=== PATIENT | male | born 2000 | race African-American/Black ===

== ENCOUNTER 2024-11-26 19:11 | Emergency (ER) | payer OTHER, SELFPAY ==
--- NOTE | 2024-11-26 19:27 | DI.RAD.S_ITS ---
PROCEDURE: XR CHEST 1V INDICATIONS: chest pain TECHNIQUE: One view of the chest was acquired. COMPARISON: None. FINDINGS: Surgical changes and devices: None. Lungs and pleura: Lungs are clear. No pleural effusions or pneumothorax. Mediastinum: Mediastinal contours appear normal. Heart size is normal. Bones and chest wall: No suspicious bony lesions. Overlying soft tissues appear unremarkable. IMPRESSION: No acute cardiothoracic process. Dictated by: Rafa Stephen M.D. on 11/26/2024 at 20:32 Approved by: Rafa Stephen M.D. on 11/26/2024 at 20:33
[2024-11-26 19:36] VITALS: BP 132/87; PULSE 99; RESP 24; TEMP 36.1; O2SAT 97; BMI 45.1
--- NOTE | 2024-11-26 19:47 | EKG_ITS ---
[facility] [id number] [place] [id number] Test Date: 2024-11-26 Pat Name: Ashley Spencer [facility] Room: Gender: Male Behavioral Health Counselor: SHANNAN : 2000 Requested By: Order Number: [id number] [place] MD: Aamir Martinez Measurements Intervals [place] Rate: 115 P: 51 AL: 138 QRS: 66 QRSD: 84 T: 6 QT: 342 QTc: 473 Interpretive Statements Sinus tachycardia T wave abnormality, consider anterolateral ischemia Electronically Signed On 11-28-2024 8:44:36 PDT by Aamir Martinez
[2024-11-26 20:41] LABS: Add Manual Diff / Slide Review NO; Basophils Absolute Auto 100 /uL (0-100); Eosinophils Absolute Auto 300 /uL (0-450); Eosinophils Percent Auto 2.5 % (2-4); Hematocrit 47.1 % (41-53); Hemoglobin 15.6 g/dL (13.5-17.5); Lymphocytes Absolute Auto 3000 /uL (1100-4500); Lymphocytes Percent Auto 29.4 % (25-40); Mean Corpuscular HGB Conc 33.1 % (30-36); Mean Corpuscular Hemoglobin 27.7 PG (26-34); Mean Corpuscular Volume 83.6 fL (80-100); Monocytes Absolute Auto 1000 /uL (0-900); Monocytes Percent Auto 9.9 % (3-14); Neutrophils Absolute Auto 5900 /uL (1500-7000); Neutrophils Percent Auto 57.2 % (50-75); Platelet Count 298 X10^3/uL (150-400); Red Blood Cell Count 5.64 X10^6/uL (4.5-5.9); Red Cell Distribution Width 14.7 % (11.6-14.8); White Blood Cell Count 10.3 X10^3/uL (4.5-11.0)
[2024-11-26 20:53] LABS: INR 1.2 (0.9-1.3); Prothrombin Time 14.1 SECONDS (9.4-12.5)
[2024-11-26 20:56] LABS: PTT Partial Thromboplastin Tim 40 SECONDS (25.1-36.5)
[2024-11-26 20:57] LABS: Alanine Aminotransferase 52 IU/L (<50); Albumin 4.4 g/dL (3.5-5.0); Albumin Globulin Ratio 1.3 (1.0-2.8); Alkaline Phosphatase 77 U/L (38-126); Aspartate Aminotransferase 39 IU/L (17-59); BUN Creatinine Ratio 8.1 (6-22); Bilirubin Total 0.8 mg/dL (0.2-1.3); Blood Urea Nitrogen 9 mg/dL (9-20); Calcium 8.9 mg/dL (8.4-10.2); Carbon Dioxide 21 mmol/L (22-32); Chloride 105 mmol/L (98-107); Creatine Kinase 305 U/L (55-170); Estimated Glomerular Filt Rate > 60 mL/min (>60); Globulin 3.5 g/dL (1.7-4.1); Glucose 99 mg/dL (70-100); HEMOLYSIS < 15 (0-50); Lipase 69 U/L (23-300); Magnesium 2.2 mg/dL (1.6-2.3); Potassium 3.5 mmol/L (3.4-5.1); Sodium 139 mmol/L (137-145); Total Protein 7.9 g/dL (6.3-8.2)
[2024-11-26 21:09] LABS: NT-proBNP (BNP-Adult 18+) 3310 pg/mL (<125); Troponin I < 0.012 ng/mL (0.01-0.034)
[2024-11-27] VITALS (19 sets, daily range): BP systolic 109–162; BP diastolic 55–119; PULSE 117–129; RESP 20–36; TEMP 36.6–37.2; O2SAT 90–97
--- NOTE | 2024-11-27 03:47 | ED_ITS ---
HPI - General Adult <Frank Leyva MD - Last Filed: 11/27/24 16:36> General Chief complaint: Shortness of Breath/Dyspnea Stated complaint: SOB, Tachycardia, lightheaded Time Seen by Provider: 11/26/24 20:01 Source: patient and family Mode of arrival: Ambulatory History of Present Illness HPI narrative: 24-year-old male has had a cough for 2 days, increasing shortness of breath, while in the waiting room felt dizzy, had incontinence of urine, shaking episode, collapse to the floor, hit the back of his head, found to have low blood sugar, dextrose given, moved to exam room. Seems to be recovered, moving extremities. Still has some shortness of breath. Persisting tachycardia. Denies chest pain. Denies cough and fevers. Denies pain to abdomen and pelvis. Denies extremity pain or swelling. Denies neck pain. No prior blood clots to legs or lungs. No leg pain or swelling symptoms. Related Data Allergies Allergy/AdvReac Type Severity Reaction Status Date / Time No Known Drug Allergies Allergy Verified 11/26/24 19:36 Patient History <Frank Leyva MD - Last Filed: 11/27/24 16:36> Social History Smoking Status: Former smoker Smoking Status: Former smoker Exam <Frank Leyva MD - Last Filed: 11/27/24 16:36> Narrative Exam Narrative: GENERAL: Well-developed patient, in mild distress. HEAD: Atraumatic. Normocephalic. EYES: Pupils equal round and reactive. Extraocular motions intact. No scleral icterus. No injection or drainage. ENT: Nose without bleeding, purulent drainage. Throat without erythema, tonsillar hypertrophy or exudate. Airway patent. NECK: Trachea midline. Non tender CARDIOVASCULAR: Fast rate regular rhythm, without obvious murmurs, gallops, or rubs. RESPIRATORY: Clear to auscultation. Breath sounds equal bilaterally. No wheezes, rales, or rhonchi. GASTROINTESTINAL: Abdomen soft, non-tender, nondistended. EXTREMITIES: No edema or joint tenderness. BACK: Nontender without deformity or crepitance. No flank tenderness. NEURO: AOx3. Motor functions grossly nonfocal SKIN: No rash or erythema of visible areas Initial Vital Signs Initial Vital Signs: Vital Signs Temperature 97.0 F L 11/26/24 19:36 Pulse Rate 99 H 11/26/24 19:36 Respiratory Rate 24 11/26/24 19:36 Blood Pressure 132/87 11/26/24 19:36 Pulse Oximetry 97 11/26/24 19:36 Oxygen Delivery Method Room Air 11/26/24 19:36 <Zara Graf DO - Last Filed: 11/27/24 16:14> Initial Vital Signs Initial Vital Signs: Vital Signs Temperature 97.0 F L 11/26/24 19:36 Pulse Rate 99 H 11/26/24 19:36 Respiratory Rate 24 11/26/24 19:36 Blood Pressure 132/87 11/26/24 19:36 Pulse Oximetry 97 11/26/24 19:36 Oxygen Delivery Method Room Air 11/26/24 19:36 Course <Frank Leyva MD - Last Filed: 11/27/24 16:36> Orders Ordered: ED Orders 11/27/24 07:45 Trop I [Troponin I] Stat 11/27/24 08:56 Miscellaneous to [facility] Routine Discontinued Medications Aspirin (Aspirin 81 Mg Chew Tab) 324 mg PO NOW ONE Stop: 11/26/24 19:28 Last Admin: 11/27/24 05:22 Dose: Not Given Documented By: Dextrose (Dextrose 50 % In Water 25 Gm/50 Ml Syringe) 12.5 gm IV PRN PRN PRN Reason: Hypoglycemia Last Admin: 11/27/24 04:07 Dose: 12.5 gm Documented By: VINICIUS Heparin Sodium (Porcine) (Heparin 5,000 Unit/Ml Vial) 10,000 unit 80 unit/kg (88047 unit) IV NOW ONE Stop: 11/27/24 05:58 Last Admin: 11/27/24 07:58 Dose: 10,000 unit Documented By: JUNIE Heparin Sodium/Dextrose (Heparin Drip) 25,000 unit in 500 mls @ 45.722 mls/hr IV CONT TINA; Protocol Last Admin: 11/27/24 06:07 Dose: Not Given Documented By: Heparin Sodium/Dextrose (Heparin Drip) 25,000 unit in 500 mls @ 40 mls/hr IV CONT TINA; Protocol Last Titration: 11/27/24 10:06 Dose: 2,000 unit/hr, 40 mls/hr Documented By: JUNIE Co-signed By: LOULOU Admin: 11/27/24 08:02 Dose: 2,000 unit/hr, 40 mls/hr Documented By: JUNIE Co-signed By: YARELI Ceftriaxone Sodium 1,000 mg/ (Sodium Chloride) 100 mls @ 200 mls/hr IV NOW ONE Stop: 11/27/24 06:29 Last Infusion: 11/27/24 09:10 Dose: Infused Documented By: Admin: 11/27/24 08:40 Dose: 200 mls/hr Documented By: JUNIE Doxycycline Hyclate 100 mg/ (Sodium Chloride) 100 mls @ 100 mls/hr IV NOW ONE Stop: 11/27/24 06:29 Last Infusion: 11/27/24 10:05 Dose: 100 mls/hr Documented By: Admin: 11/27/24 09:11 Dose: 100 mls/hr Documented By: JUNIE Vital Signs Vital signs: Vital Signs - 8 hr 11/27/24 09:00 11/27/24 09:01 11/27/24 09:01 Temperature Pulse Rate 119 H 119 H Respiratory Rate 24 27 H Blood Pressure 115/66 Pulse Oximetry 96 96 Oxygen Delivery Method Nasal Cannula Oxygen Flow Rate 2 11/27/24 09:30 11/27/24 09:30 11/27/24 09:43 Temperature 99.0 F Pulse Rate 120 H Respiratory Rate 25 H Blood Pressure 111/71 Pulse Oximetry 97 Oxygen Delivery Method Nasal Cannula Oxygen Flow Rate 2 <Zara Graf, DO - Last Filed: 11/27/24 16:14> Orders Ordered: ED Orders 11/27/24 07:45 Trop I [Troponin I] Stat 11/27/24 08:56 Miscellaneous to [facility] Routine Discontinued Medications Aspirin (Aspirin 81 Mg Chew Tab) 324 mg PO NOW ONE Stop: 11/26/24 19:28 Last Admin: 11/27/24 05:22 Dose: Not Given Documented By: Dextrose (Dextrose 50 % In Water 25 Gm/50 Ml Syringe) 12.5 gm IV PRN PRN PRN Reason: Hypoglycemia Last Admin: 11/27/24 04:07 Dose: 12.5 gm Documented By: VINICIUS Heparin Sodium (Porcine) (Heparin 5,000 Unit/Ml Vial) 10,000 unit 80 unit/kg (32719 unit) IV NOW ONE Stop: 11/27/24 05:58 Last Admin: 11/27/24 07:58 Dose: 10,000 unit Documented By: JUNIE Heparin Sodium/Dextrose (Heparin Drip) 25,000 unit in 500 mls @ 45.722 mls/hr IV CONT TINA; Protocol Last Admin: 11/27/24 06:07 Dose: Not Given Documented By: AB Heparin Sodium/Dextrose (Heparin Drip) 25,000 unit in 500 mls @ 40 mls/hr IV CONT TINA; Protocol Last Titration: 11/27/24 10:06 Dose: 2,000 unit/hr, 40 mls/hr Documented By: SPF Co-signed By: LOULOU Admin: 11/27/24 08:02 Dose: 2,000 unit/hr, 40 mls/hr Documented By: JUNIE Co-signed By: YARELI Ceftriaxone Sodium 1,000 mg/ (Sodium Chloride) 100 mls @ 200 mls/hr IV NOW ONE Stop: 11/27/24 06:29 Last Infusion: 11/27/24 09:10 Dose: Infused Documented By: Admin: 11/27/24 08:40 Dose: 200 mls/hr Documented By: SPF Doxycycline Hyclate 100 mg/ (Sodium Chloride) 100 mls @ 100 mls/hr IV NOW ONE Stop: 11/27/24 06:29 Last Infusion: 11/27/24 10:05 Dose: 100 mls/hr Documented By: Admin: 11/27/24 09:11 Dose: 100 mls/hr Documented By: JUNIE Vital Signs Vital signs: Vital Signs - 8 hr 11/27/24 09:00 11/27/24 09:01 11/27/24 09:01 Temperature Pulse Rate 119 H 119 H Respiratory Rate 24 27 H Blood Pressure 115/66 Pulse Oximetry 96 96 Oxygen Delivery Method Nasal Cannula Oxygen Flow Rate 2 11/27/24 09:30 11/27/24 09:30 11/27/24 09:43 Temperature 99.0 F Pulse Rate 120 H Respiratory Rate 25 H Blood Pressure 111/71 Pulse Oximetry 97 Oxygen Delivery Method Nasal Cannula Oxygen Flow Rate 2 Medical Decision Making <Frank Leyva MD - Last Filed: 11/27/24 16:36> Lab Data Lab results reviewed: Yes I reviewed the patient's lab results. Lab results narrative: White blood cell count 18786, hemoglobin 15.6, platelets 298,000. Glucose 99. Sodium 139 with potassium 3.5, serum CO2 21. BUN 9 with creatinine 1.11 normal renal function. Troponin negative/unmeasurable. Lactate 2.9 elevated. BNP 3310 elevated. COVID influenza RSV negative. 11/26/24 20:30 11/26/24 20:30 Labs: Lab Results 11/26/24 11/27/24 11/27/24 Range/Units 20:30 05:20 05:54 WBC 10.3 (4.5-11.0) X10^3/uL RBC 5.64 (4.5-5.9) X10^6/uL Hgb 15.6 (13.5-17.5) g/dL Hct 47.1 (41-53) % MCV 83.6 (80-100) fL MCH 27.7 (26-34) PG MCHC 33.1 (30-36) % RDW 14.7 (11.6-14.8) % Plt Count 298 (150-400) X10^3/uL Neut % (Auto) 57.2 (50-75) % Lymph % (Auto) 29.4 (25-40) % [place] % (Auto) 9.9 (3-14) % Eos % (Auto) 2.5 (2-4) % Baso % (Auto) 1.0 (0-2) % Neut # (Auto) 5900 (0742-2825) /uL Lymph # (Auto) 3000 (6214-9980) /uL [place] # (Auto) 1000 H (0-900) /uL Eos # (Auto) 300 (0-450) /uL Baso # (Auto) 100 (0-100) /uL PT 14.1 H (9.4-12.5) SECONDS INR 1.2 (0.9-1.3) APTT 40 H (25.1-36.5) SECONDS Sodium 139 (137-145) mmol/L Potassium 3.5 (3.4-5.1) mmol/L Chloride 105 (98-107) mmol/L Carbon Dioxide 21 L (22-32) mmol/L BUN 9 (9-20) mg/dL Creatinine 1.11 (0.66-1.25) mg/dL Estimated GFR > 60 (>60) mL/min BUN/Creatinine Ratio 8.1 (6-22) Glucose 99 (70-100) mg/dL Lactate 2.9 H (0.7-2.1) mmol/L Calcium 8.9 (8.4-10.2) mg/dL Magnesium 2.2 (1.6-2.3) mg/dL Total Bilirubin 0.8 (0.2-1.3) mg/dL AST 39 (17-59) IU/L ALT 52 H (<50) IU/L Alkaline Phosphatase 77 (38-126) U/L Total Creatine Kinase 305 H (55-170) U/L Troponin I < 0.012 (0.01-0.034) ng/mL NT-Pro-B Natriuret Pep 3310 H (<125) pg/mL Total Protein 7.9 (6.3-8.2) g/dL Albumin 4.4 (3.5-5.0) g/dL Globulin 3.5 (1.7-4.1) g/dL Albumin/Globulin Ratio 1.3 (1.0-2.8) Lipase 69 (23-300) U/L SARS-CoV-2 (PCR) Negative (Negative) Influenza A (RT-PCR) Flu a negative (NEGATIVE) Influenza B (RT-PCR) Flu b negative (NEGATIVE) RSV (PCR) Negative (Negative) 11/27/24 11/27/24 Range/Units 06:22 07:45 WBC (4.5-11.0) X10^3/uL RBC (4.5-5.9) X10^6/uL Hgb (13.5-17.5) g/dL Hct (41-53) % MCV (80-100) fL MCH (26-34) PG MCHC (30-36) % RDW (11.6-14.8) % Plt Count (150-400) X10^3/uL Neut % (Auto) (50-75) % Lymph % (Auto) (25-40) % [place] % (Auto) (3-14) % Eos % (Auto) (2-4) % Baso % (Auto) (0-2) % Neut # (Auto) (4772-3409) /uL Lymph # (Auto) (4439-7535) /uL [place] # (Auto) (0-900) /uL Eos # (Auto) (0-450) /uL Baso # (Auto) (0-100) /uL PT (9.4-12.5) SECONDS INR (0.9-1.3) APTT 30 D (25.1-36.5) SECONDS Sodium (137-145) mmol/L Potassium (3.4-5.1) mmol/L Chloride (98-107) mmol/L Carbon Dioxide (22-32) mmol/L BUN (9-20) mg/dL Creatinine (0.66-1.25) mg/dL Estimated GFR (>60) mL/min BUN/Creatinine Ratio (6-22) Glucose (70-100) mg/dL Lactate 2.7 H (0.7-2.1) mmol/L Calcium (8.4-10.2) mg/dL Magnesium (1.6-2.3) mg/dL Total Bilirubin (0.2-1.3) mg/dL AST (17-59) IU/L ALT (<50) IU/L Alkaline Phosphatase (38-126) U/L Total Creatine Kinase (55-170) U/L Troponin I 0.026 (0.01-0.034) ng/mL NT-Pro-B Natriuret Pep (<125) pg/mL Total Protein (6.3-8.2) g/dL Albumin (3.5-5.0) g/dL Globulin (1.7-4.1) g/dL Albumin/Globulin Ratio (1.0-2.8) Lipase (23-300) U/L SARS-CoV-2 (PCR) (Negative) Influenza A (RT-PCR) (NEGATIVE) Influenza B (RT-PCR) (NEGATIVE) RSV (PCR) (Negative) Point of Care Testing Glucose POC 136 Point of care testing: Point of Care Testing Glucose POC 136 Imaging Data Chest x-ray: Radiologist's Impression: [address] [address] XRay Report Signed Patient: Ashley Spencer MR#: [id number] : 2000 Acct:[id number] Age/Sex: 24 / M Date of Service: 11/26/24 Loc: ED Accession Number: [id number] Procedure: XR chest 1V Ordering Provider: Frank Leyva MD PROCEDURE: XR CHEST 1V INDICATIONS: chest pain TECHNIQUE: One view of the chest was acquired. COMPARISON: None. FINDINGS: Surgical changes and devices: None. Lungs and pleura: Lungs are clear. No pleural effusions or pneumothorax. Mediastinum: Mediastinal contours appear normal. Heart size is normal. Bones and chest wall: No suspicious bony lesions. Overlying soft tissues appear unremarkable. IMPRESSION: No acute cardiothoracic process. Dictated by: Rafa Stephen M.D. on 11/26/2024 at 20:32 Approved by: Rafa Stephen M.D. on 11/26/2024 at 20:33 ECG Data Attestation: I personally reviewed and interpreted this ECG as follows: Interpretation: Sinus tachycardia with rate of 115. No obvious ST segment elevation or depression. T-wave inversion lead 3 but upright in leads F and 2. T-wave inversion anterolateral leads. PA 138, QRS 84, QTC 473. MDM Narrative Medical decision making narrative: 24-year-old male had triage complaint of shortness a breath for the last couple of days, no fevers cough or constitutional symptoms, while in the waiting room was noted to have seizure activity, incontinence of urine, fell, struck his head, glucose was found to be 50s, given IV dextrose and oral juice, repeat glucose increased, no further seizure activity, subsequent glucose improved, no neck pain or tenderness after the fall. Persisting tachycardia noted. Labs sent while in waiting room remarkable for BNP 3300. No chart history of CHF or cardiomyopathy. EKG with sinus tachycardia. CT head noncontrast study ordered. CT angiogram chest ordered. CT head noncontrast. Impressions: ?No acute intracranial findings.? See teleradiology report. CT angio chest. Impressions: ?Large volume bilateral pulmonary emboli including a saddle embolus. Many of the emboli appear occlusive and there are findings of increased right heart pressure. Consolidation within the right medial lower lobe could be infection or infarct. Lungs are otherwise clear.? See teleradiology report. IV heparin per PE protocol bolus then infusion. Will need transfer for higher level of care for thrombectomy-capable facility. We will send hypercoagulable panel since this VTE seems to be unprovoked. Patient expressed understanding for this recommendation. Case discussed with hatchery laborer, there is send out hypercoagulable workup panel via [facility], verbal request for send out ordered. technical support representative came to draw additional blood for testing. Lung consolidation mentioned, infarct vs infection, lactate elevated, we will cover with antibiotics. Blood cultures, IV ceftriaxone, IV doxycycline. 0700, we will need transfer for thrombectomy for saddle PE with cor pulmonale, not available at this facility. Signed out to [facility] ED shift physician Dr. Graf. 30DrKarley Graf Patient seen evaluated by myself signed out by Dr. Leyva. Patient has been having increasing shortness of breath with exertion for the last couple of days. [place] he needed to sit down frequently. While in the waiting room he had seizure activity found to be hypoglycemic. Glucose now Patient awake alert oriented. He remains tachycardic requiring 2-3 L of oxygen blood pressure remains stable. He has a negative troponin 0.012-->0.[address] Jasso cardiology at [facility] updated patient's symptoms test results agrees that patient needs transfer 0830DrKarley Lange, interventionalist updated on patient's symptoms test results agrees with transfer Patient has a bed available They are ready for patient. Patient will be going [facility] it was the fastest mode of transportation to get patient there. <Zara Graf, DO - Last Filed: 11/27/24 16:14> Lab Data Labs: Lab Results 11/26/24 11/27/24 11/27/24 Range/Units 20:30 05:20 05:54 WBC 10.3 (4.5-11.0) X10^3/uL RBC 5.64 (4.5-5.9) X10^6/uL Hgb 15.6 (13.5-17.5) g/dL Hct 47.1 (41-53) % MCV 83.6 (80-100) fL MCH 27.7 (26-34) PG MCHC 33.1 (30-36) % RDW 14.7 (11.6-14.8) % Plt Count 298 (150-400) X10^3/uL Neut % (Auto) 57.2 (50-75) % Lymph % (Auto) 29.4 (25-40) % [place] % (Auto) 9.9 (3-14) % Eos % (Auto) 2.5 (2-4) % Baso % (Auto) 1.0 (0-2) % Neut # (Auto) 5900 (2265-6312) /uL Lymph # (Auto) 3000 (0580-3503) /uL [place] # (Auto) 1000 H (0-900) /uL Eos # (Auto) 300 (0-450) /uL Baso # (Auto) 100 (0-100) /uL PT 14.1 H (9.4-12.5) SECONDS INR 1.2 (0.9-1.3) APTT 40 H (25.1-36.5) SECONDS Sodium 139 (137-145) mmol/L Potassium 3.5 (3.4-5.1) mmol/L Chloride 105 (98-107) mmol/L Carbon Dioxide 21 L (22-32) mmol/L BUN 9 (9-20) mg/dL Creatinine 1.11 (0.66-1.25) mg/dL Estimated GFR > 60 (>60) mL/min BUN/Creatinine Ratio 8.1 (6-22) Glucose 99 (70-100) mg/dL Lactate 2.9 H (0.7-2.1) mmol/L Calcium 8.9 (8.4-10.2) mg/dL Magnesium 2.2 (1.6-2.3) mg/dL Total Bilirubin 0.8 (0.2-1.3) mg/dL AST 39 (17-59) IU/L ALT 52 H (<50) IU/L Alkaline Phosphatase 77 (38-126) U/L Total Creatine Kinase 305 H (55-170) U/L Troponin I < 0.012 (0.01-0.034) ng/mL NT-Pro-B Natriuret Pep 3310 H (<125) pg/mL Total Protein 7.9 (6.3-8.2) g/dL Albumin 4.4 (3.5-5.0) g/dL Globulin 3.5 (1.7-4.1) g/dL Albumin/Globulin Ratio 1.3 (1.0-2.8) Lipase 69 (23-300) U/L SARS-CoV-2 (PCR) Negative (Negative) Influenza A (RT-PCR) Flu a negative (NEGATIVE) Influenza B (RT-PCR) Flu b negative (NEGATIVE) RSV (PCR) Negative (Negative) 11/27/24 11/27/24 Range/Units 06:22 07:45 WBC (4.5-11.0) X10^3/uL RBC (4.5-5.9) X10^6/uL Hgb (13.5-17.5) g/dL Hct (41-53) % MCV (80-100) fL MCH (26-34) PG MCHC (30-36) % RDW (11.6-14.8) % Plt Count (150-400) X10^3/uL Neut % (Auto) (50-75) % Lymph % (Auto) (25-40) % [place] % (Auto) (3-14) % Eos % (Auto) (2-4) % Baso % (Auto) (0-2) % Neut # (Auto) (7079-0500) /uL Lymph # (Auto) (8356-0729) /uL [place] # (Auto) (0-900) /uL Eos # (Auto) (0-450) /uL Baso # (Auto) (0-100) /uL PT (9.4-12.5) SECONDS INR (0.9-1.3) APTT 30 D (25.1-36.5) SECONDS Sodium (137-145) mmol/L Potassium (3.4-5.1) mmol/L Chloride (98-107) mmol/L Carbon Dioxide (22-32) mmol/L BUN (9-20) mg/dL Creatinine (0.66-1.25) mg/dL Estimated GFR (>60) mL/min BUN/Creatinine Ratio (6-22) Glucose (70-100) mg/dL Lactate 2.7 H (0.7-2.1) mmol/L Calcium (8.4-10.2) mg/dL Magnesium (1.6-2.3) mg/dL Total Bilirubin (0.2-1.3) mg/dL AST (17-59) IU/L ALT (<50) IU/L Alkaline Phosphatase (38-126) U/L Total Creatine Kinase (55-170) U/L Troponin I 0.026 (0.01-0.034) ng/mL NT-Pro-B Natriuret Pep (<125) pg/mL Total Protein (6.3-8.2) g/dL Albumin (3.5-5.0) g/dL Globulin (1.7-4.1) g/dL Albumin/Globulin Ratio (1.0-2.8) Lipase (23-300) U/L SARS-CoV-2 (PCR) (Negative) Influenza A (RT-PCR) (NEGATIVE) Influenza B (RT-PCR) (NEGATIVE) RSV (PCR) (Negative) Point of Care Testing Glucose POC 136 Point of care testing: Point of Care Testing Glucose POC [address] scan - chest: Radiologist's Impression: Large volume bilateral pulmonary emboli including saddle embolus. Many of the emboli appear occlusive and there are findings with increased right heart pressure. Consolidation within the right lower lobe could be infection or infarct. Lungs are otherwise clear CT scan - head: Radiologist's Impression: Preliminary report no acute intracranial findings MDM Narrative Medical decision making narrative: 24-year-old male had triage complaint of shortness a breath for the last couple of days, no fevers cough or constitutional symptoms, while in the waiting room was noted to have seizure activity, incontinence of urine, fell, struck his head, glucose was found to be 50s, given IV dextrose and oral juice once recovered, subsequent glucose improved, mental status improved. Persisting tachycardia noted. Labs sent while in waiting room remarkable for BNP 3300. EKG with sinus tachycardia. CT head noncontrast study ordered. CT angiogram chest ordered. CT head noncontrast. Impressions: ?No acute intracranial findings.? See teleradiology report. CT angio chest. Impressions: ?Large volume bilateral pulmonary emboli including a saddle embolus. Many of the emboli appear occlusive and there are findings of increased right heart pressure. Consolidation within the right medial lower lobe could be infection or infarct. Lungs are otherwise clear.? See teleradiology report. IV heparin per PE protocol bolus then infusion. Will need transfer for higher level of care for thrombectomy capable facility. We will send hypercoagulable panel since VTE seems to be unprovoked. Patient expressed understanding for this recommendation. Case discussed with hatchery laborer, there is send out hypercoagulable workup panel via [facility], verbal request for send out ordered. technical support representative came to draw additional blood for testing. Consolidation mentioned, lactate elevated, might be infarct, we will cover with antibiotics. Blood cultures, IV ceftriaxone, IV doxycycline. 0700, we will need transfer for thrombectomy for saddle PE with cor pulmonale, not available at this facility. Signed out to [facility] ED shift physician Dr. Graf. 0730DrKarley Graf Patient seen evaluated by myself signed out by Dr. Leyva. Patient has been having increasing shortness of breath with exertion for the last couple of days. reports it walking around [place] he needed to sit down frequently. While in the waiting room he had seizure activity found to be hypoglycemic. Glucose now Patient awake alert oriented. He remains tachycardic requiring 2-3 L of oxygen blood pressure remains stable. He has a negative troponin 0.012-->0.[address] Jasso cardiology at [facility] updated patient's symptoms test results agrees that patient needs transfer 0830DrKarley Lange, interventionalist updated on patient's symptoms test results agrees with transfer Patient has a bed available They are ready for patient. Patient will be going [facility] it was the fastest mode of transportation to get patient there. Critical Care Time <Zara Graf, DO - Last Filed: 11/27/24 16:14> Critical Care Time Critical Care Time: Yes Total Critical Care Time: 33 Attestation: The high probability of a clinically significant, sudden or life threatening deterioration of the [cardiovascular] system(s) required my full and direct attention, intervention and personal management. The aggregate critical care time was 33 minutes. This time is in addition to time spent performing reported procedures but includes the following: [x] Data Review and interpretation [x] Patient assessment and monitoring of vital signs [x] Documentation [x] Medication orders and management Discharge Plan Departure Patient Disposition: [facility] Clinical Impression: Saddle embolus of pulmonary artery with acute cor pulmonale, Dyspnea, Seizure due to hypoglycemia, Hypoglycemia Referrals: Miscellaneous,Doctor, MD [Primary Care Provider] -
--- NOTE | 2024-11-27 03:50 | DI.CT.S_ITS ---
PROCEDURE: CT HEAD/BRAIN WO CON INDICATIONS: syncope, ?sz TECHNIQUE: Noncontrast 4.5 mm thick angled axial sections acquired from the foramen magnum to the vertex, with coronal and sagittal reformats. For radiation dose reduction, the following was used: automated exposure control, adjustment of mA and/or kV according to patient size. COMPARISON: None. FINDINGS: Image quality: Diagnostic. CSF spaces: Basal cisterns are patent. No extra-axial fluid collections. Ventricles are normal in size and shape. Brain: No midline shift. No intracranial masses or hemorrhage. Flores-white matter interface is normal. Skull and face: Calvarium and visualized facial bones are intact, without suspicious lesions. Sinuses: Visualized sinuses and mastoids are clear. IMPRESSION: No acute intracranial pathology. There is no significant discrepancy when compared to the overnight preliminary report. Approved by: Ariel Malave M.D. on 11/27/2024 at 9:00
--- NOTE | 2024-11-27 03:50 | DI.CT.S_ITS ---
PROCEDURE: CT ANGIO CHEST PE PROTOCOL INDICATIONS: syncope, sinus tachy TECHNIQUE: After the administration of intravenous contrast, 2 mm thick sections acquired from the pulmonary apices to the posterior costophrenic angles. 3-dimensional maximum intensity projection (MIP) coronal and sagittal reformats were then acquired through the thorax. For radiation dose reduction, the following was used: automated exposure control, adjustment of mA and/or kV according to patient size. COMPARISON: None. FINDINGS: Image quality: Diagnostic. Pulmonary arteries: Saddle filling defect is seen at the bifurcation of the main pulmonary artery. Large filling defects are seen within the right and left pulmonary arteries extending into lobar and distal branches bilaterally. Right heart is enlarged with elevated RV: LV ratio. Main pulmonary artery measures 3.3 cm in diameter. No significant reflux of contrast material into the hepatic veins. Lower Neck: No enlarged lymph nodes. Thyroid: No thyroid nodules which require sonographic follow up, per consensus guidelines. Axillae: No enlarged lymph nodes. Chest Wall: Unremarkable. Bones: Unremarkable. Lungs and Pleura: No pneumothorax or pleural effusions. Opacities are seen in the medial aspect of the right lower lobe suspicious for pulmonary infarct versus aspiration or pneumonia. Heart: Heart size is normal. No pericardial effusion. Thoracic Vessels: No aortic aneurysm. Mediastinum and Lacey: No enlarged lymph nodes. Esophagus: No wall thickening. No hiatal hernia. Upper Abdomen: Visualized upper abdomen solid organs and bowel loops appear normal. IMPRESSION: 1. Large volume of pulmonary emboli bilaterally including a saddle embolus. Signs of right heart strain including dilated right ventricle and main pulmonary artery. 2. Medial right lower lobe consolidation likely related to infarct although pneumonia or aspiration are not excluded. Findings were conveyed to Dr. Leyva by [facility] on 11/27/2024 at 5:56 AM. There is no significant discrepancy when compared to the overnight preliminary report. Approved by: Ariel Malave M.D. on 11/27/2024 at 9:04
[2024-11-27] MEDS: DEXTROSE 50 % IN WATER 25 GM/50 ML SYRINGE IV (04:07)
--- NOTE | 2024-11-27 05:24 | PC.NURSE ---
0345 called to waiting room by registration staff. Patient found on floor, nonresponsive to voice/noxious stimuli. reported by bystanders possible seizure, fell out of chair hitting head on chair then on ground with some overall body shaking. diaphoretic at ER nurse arrival with urine incontinence. Patient spontaneously opened eyes and sat upright within 1 minute, pulse regular, tachycardic, respiration even unlabored. Patient did not have recollection of event but orient to self, place, year. Patient able to stand upright with standby assistance x2 from ER staff, sit in wheelchair, then stand and pivot to bed in room 4 ER. 0353 Patient remained diaphoretic, Blood Glucose 56, patient given applejuice x 2, placed on bedside monitoring, seizure pads in place. 0407 IV dextrose given -- 12.5 grams (25ml) of D50 0417 Blood Glucose 303 - drawn from IV [address] with RN & CT/DI tech, on portable patient monitoring 0442 repeat blood glucose 202 via capillary/fingerstick. Patient is orthopneic, hypoxic, repositioned sitting upright/HOB elevated, towel roll behind neck, and Oxygen started NC 4LPM. Significant other remained at bedside from waiting room into ER.
[2024-11-27 06:07] LABS: Influenza A - CEPHEID Flu A NEGATIVE (NEGATIVE); Influenza B - CEPHEID Flu B NEGATIVE (NEGATIVE); Respiratory Syncytial Virus Negative (Negative)
[2024-11-27 06:07] LABS: Lactate (Lactic Acid) 2.9 mmol/L (0.7-2.1)
[2024-11-27 06:09] LABS: COVID-19 CEPHEID 4-PLEX PCR Negative (Negative)
[2024-11-27 06:38] LABS: PTT Partial Thromboplastin Tim 30 SECONDS (25.1-36.5)
[2024-11-27 07:30] LABS: Reflexed Lactate in 2 Hours Y
[2024-11-27] MEDS: HEPARIN 5,000 UNIT/ML VIAL 10000 UNIT IV (07:58)
[2024-11-27] MEDS: HEPARIN DRIP 25,000 UNIT/500 ML IV.SOLN 40 UNIT IV (08:02)
[2024-11-27] MEDS: cefTRIAXone 1,000 MG in SODIUM CHLORIDE 0.9% 100 ML 200 MG IV (08:40)
[2024-11-27 08:43] LABS: Lactate 2HR (Lactic Acid Rflx) 2.7 mmol/L (0.7-2.1)
[2024-11-27 08:48] LABS: Troponin I 0.026 ng/mL (0.01-0.034)
[2024-11-27] MEDS: DOXYCYCLINE 100 MG in SODIUM CHLORIDE 0.9% 100 ML IV (09:11)
--- NOTE | 2024-11-27 09:40 | PC.NURSE ---
Pt reports left arm feeling hot wh ile receiving IV doxycycline. Assessed pt's airway with no difficulty breathing. Stopped IV and talked to provider who states add 100cc of normal saline drip to flow with doxycycline. Reinitiated doxycycline with no complications.
== END 2024-11-27 10:20 | disposition short-term general hospital (02) ==
PROVIDERS: Emergency Medicine; Emergency Provider Emergency Medicine
DX: I26.02 Saddle embolus of pulmonary artery with acute cor pulmonale (principal); E06.2 Chronic thyroiditis with transient thyrotoxicosis; R06.02 Shortness of breath; G40.89 Other seizures; R42 Dizziness and giddiness; R06.00 Dyspnea, unspecified; S09.90XA Unspecified injury of head, initial encounter; R00.0 Tachycardia, unspecified; R07.9 Chest pain, unspecified
CPT/HCPCS: 0241U; 36415; 70450; 71045; 71275; 80053; 82550; 82962; 83605; 83690; 83735; 83880; 84484; 85025; 85610; 85730; 87040; 93005; 96365; 96366; 96367; 96368; 96375; 99285; 99291; J0696; J1644; Q9967